=== PATIENT | female | born 2000 | race Caucasian/White ===

== ENCOUNTER 2018-07-27 15:42 | Emergency (ER) | payer OTHER ==
[~2018-07-27] VITALS: Ht 160 cm; Wt 63.6 kg
[2018-07-27] MEDS ORDERED: MULTI VITAMINS1 TAB PO (16:23)
[2018-07-27 17:24] VITALS: BP 120/72; PULSE 84; TEMP 97.9
== END 2018-07-27 17:25 | disposition home or self-care (01) ==
LOC: COL.ER 15:42
DX: K60.0 Acute anal fissure (principal)

== ENCOUNTER 2019-10-08 18:44 | Emergency (ER) | payer OTHER ==
[~2019-10-08] VITALS: Ht 160 cm; Wt 63.6 kg
[~2019-10-08 18:44] MED LIST: MULTI VITAMINS1 TAB PO
[2019-10-08 18:53] VITALS: BP 136/86; TEMP 97.8
[2019-10-08] MEDS ORDERED: ADDERALL5 MG PO (19:12)
[2019-10-08 19:32] LABS: COLLECTION METHOD CLEAN CATCH
[2019-10-08 19:56] LABS: MUCOUS Present /lpf; PH 6 (5-8); SQUAMOUS EPITHELIAL None Seen /hpf; URINE APPEARANCE Hazy; URINE BACTERIA None Seen /hpf; URINE BILIRUBIN Negative (NEGATIVE); URINE BLOOD 3+ (NEGATIVE); URINE COLOR Yellow; URINE GLUCOSE Negative (NEGATIVE); URINE KETONE Negative (NEGATIVE); URINE LEUKOCYTE ESTERASE 2+ (NEGATIVE); URINE NITRATE Negative (NEGATIVE); URINE PROTEIN(semi-quant) 2+ (NEGATIVE); URINE RBC >50 /hpf; URINE UROBILINOGEN Negative (NEGATIVE)
[2019-10-08] MEDS ORDERED: OMNICEF 300MG300 MG PO (20:02)
[2019-10-08 20:21] VITALS: PULSE 80
== END 2019-10-08 20:22 | disposition home or self-care (01) ==
LOC: COL.ER 18:44
PROVIDERS: Emergency Medicine
DX: N30.80 Other cystitis without hematuria (principal)